=== PATIENT | male | born 1985 | race Caucasian/White ===

== ENCOUNTER 2021-08-30 16:47 | Emergency (ER) | payer OTHER ==
[~2021-08-30] VITALS: Ht 190.5 cm; Wt 93.2 kg
[2021-08-30] MEDS ORDERED: BOOSTRIX/ADACEL VACCINE (DIPHTH/PERTUSS/ACELL/TETANUS) 0.5ML SYR IM.IMMUN ONE (19:45)
[2021-08-30] MEDS ORDERED: CEPH500C PO (19:58)
[2021-08-30] MEDS ORDERED: CEPHALEXIN SUSP POWDER 250MG/5ML BTL 100ML PO ONE (20:00)
[2021-08-30] MEDS ORDERED: CEPHALEXIN 500 MG CAP PO ONE (20:05)
[2021-08-30 20:06] VITALS: BP 139/93
== END 2021-08-30 20:13 | disposition home or self-care (01) ==
LOC: M ED 16:47
DX: S01.541A Puncture wound with foreign body of lip, initial encounter (principal); W22.8XXA Striking against or struck by other objects, initial encounter; Y92.89 Other specified places as the place of occurrence of the external cause; Y99.0 Civilian activity done for income or pay